=== PATIENT | male | born 1965 | race Two or more races ===

== ENCOUNTER 2021-02-03 23:13 | Emergency (ER) | payer MEDICARE, OTHER ==
[~2021-02-03] VITALS: Ht 170.2 cm; Wt 85.7 kg
--- NOTE | 2021-02-03 23:22 | NUR ---
Pt bibra c/o rt rib pain and rt leg swelling. Pt aaox4 breathing evenly and unlabored. Pt denies any trauma to the area. Pt has hx of rt sided stroke in 2013. pt skin is warm, dry, and intact. Rt leg and arm are noted to be swollen, but pt states that rt arm is "usually swollen". Pt attached to monitor and pox. Pt given blanket and call light within reach
[2021-02-04] MEDS ORDERED: HYDROMORPHONE INJ 2 MG/ML DISP.SYRIN ONE (00:10)
[2021-02-04] MEDS ORDERED: ONDANSETRON 4 MG TAB.RAPDIS ONE (00:11)
--- NOTE | 2021-02-04 00:15 | NUR ---
US called and on their way
[2021-02-04 00:16] LABS: BASOPHILS # (AUTO) 0.1 /CMM (0.0-0.2); BASOPHILS % (AUTO) 0.7 % (0.0-2.0); EOSINOPHILS % (AUTO) 3.6 % (0.0-6.0); HEMATOCRIT 40 % (39-51); HEMOGLOBIN 12.8 g/dL (13.5-17.5); LYMPHOCYTES # (AUTO) 1.8 /CMM (0.8-4.8); LYMPHOCYTES % (AUTO) 22.5 % (20.0-44.0); MEAN CORPUSCULAR HGB CONC 32 g/dl (31.0-36.0); MEAN CORPUSCULAR VOLUME 82 fL (80-96); MONOCYTES # (AUTO) 0.6 /CMM (0.1-1.30); MONOCYTES % (AUTO) 7.4 % (2.0-12.0); NEUTROPHILS # (AUTO) 5.4 /CMM (1.8-8.9); NEUTROPHILS % (AUTO) 65.8 % (43.0-81.0); PLATELET COUNT (AUTO) 221 /CMM (150-450); RED BLOOD CELL COUNT(AUTO) 4.87 MIL/uL (4.5-6.0); WHITE BLOOD COUNT (AUTO) 8.1 K/uL (4.3-11.0)
[2021-02-04 00:26] LABS: CALCIUM, SERUM 8.6 mg/dL (8.5-10.1); CREATININE 1.4 mg/dL (0.6-1.3); POTASSIUM 4.3 mmol/L (3.5-5.1)
[2021-02-04] MEDS ORDERED: ONDANSETRON 4 MG TAB.RAPDIS SL ONE (00:30)
[2021-02-04] MEDS ORDERED: HYDROMORPHONE INJ 2 MG/ML DISP.SYRIN IM ONE (00:30)
[2021-02-04 00:32] LABS: ALBUMIN 3.8 g/dL (3.4-5.0); BILIRUBIN,TOTAL 0.6 mg/dL (0.2-1.0)
--- NOTE | 2021-02-04 01:36 | NUR ---
us at bedside
[2021-02-04] MEDS ORDERED: PRED20TA PO (02:26)
[2021-02-04] MEDS ORDERED: HYDR-3980 PO (02:26)
[2021-02-04] MEDS ORDERED: predniSONE 50 MG TABLET PO ONE (02:30)
--- NOTE | 2021-02-04 02:33 | NUR ---
Patient discharged to home in stable condition. Written and verbal after care instructions given. Patient verbalizes understanding of instruction. Pt ambulatory with a steady gait. Pt awaiting son for ride
[2021-02-04] MEDS ORDERED: predniSONE 10 MG TABLET ONE (02:35)
[2021-02-04 02:49] VITALS: BP 144/88
== END 2021-02-04 02:40 | disposition home or self-care (01) ==
LOC: ER 23:17
DX: M79.601 Pain in right arm (principal); G81.91 Hemiplegia, unspecified affecting right dominant side; L23.9 Allergic contact dermatitis, unspecified cause; G89.29 Other chronic pain; M79.604 Pain in right leg; I89.0 Lymphedema, not elsewhere classified; I10 Essential (primary) hypertension; Z86.73 Personal history of transient ischemic attack (TIA), and cerebral infarction without residual deficits; Z79.899 Other long term (current) drug therapy
CPT/HCPCS: 36415; 71045; 80053; 85025; 93971 ×2; 96372; 99285; J1170; J7512; Q0162

== ENCOUNTER 2021-02-17 04:26 | Emergency (ER) | payer MEDICARE, OTHER ==
[~2021-02-17] VITALS: Ht 167.6 cm; Wt 99.8 kg
[~2021-02-17 04:26] MED LIST: HYDR-3980 PO; PRED20TA PO
--- NOTE | 2021-02-17 04:41 | NUR ---
PT AAOX4. BIBRA FROM HOME C/O R ARM PAIN - TRAUMA NOTED. PLACED IN BED 10 ON MONITOR AND PULSE OX. AWAITING ER MD FOR EVAL AND ORDERS.
[2021-02-17] MEDS ORDERED: KETOROLAC TROMETHAMINE INJ 30 MG/ML VIAL ONE (04:48)
[2021-02-17] MEDS ORDERED: KETOROLAC TROMETHAMINE INJ 30 MG/ML VIAL IV ONE (05:00)
--- NOTE | 2021-02-17 05:20 | NUR ---
PT STATED THE PAIN SUBSIDED, C/O NAUSEA.
[2021-02-17] MEDS ORDERED: ONDANSETRON HCL/PF 4 MG/2 ML VIAL ONE (05:22)
[2021-02-17] MEDS ORDERED: ONDANSETRON HCL/PF 4 MG/2 ML VIAL IV ONE (05:30)
--- NOTE | 2021-02-17 05:54 | NUR ---
ATTEMPTED TO CONTACT PT'S SON REGARDING TRANSPORTATION BACK HOME. NO ANSWER
--- NOTE | 2021-02-17 07:07 | NUR ---
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
[2021-02-17] MEDS ORDERED: HYDROMORPHONE 1 MG/1 ML DISP.SYRIN ONE (07:45)
--- NOTE | 2021-02-17 07:50 | NUR ---
C/O RIGHT ARM PAIN 03/20. ORDERED DILAUDID GIVEN. NO ADVERSE SIE EFFECTS NOTED.
[2021-02-17 07:53] VITALS: BP 141/84
--- NOTE | 2021-02-17 07:53 | NUR ---
The patient is alert and oriented x4. Patient discharged to home in stable condition. Written and verbal after care instructions given. Patient verbalizes understanding of instruction.
[2021-02-17] MEDS ORDERED: HYDROMORPHONE 1 MG/1 ML DISP.SYRIN IV ONE (08:00)
== END 2021-02-17 07:53 | disposition home or self-care (01) ==
LOC: ER 04:28
DX: G89.29 Other chronic pain (principal); I11.0 Hypertensive heart disease with heart failure; I50.9 Heart failure, unspecified; Z79.899 Other long term (current) drug therapy; Z86.73 Personal history of transient ischemic attack (TIA), and cerebral infarction without residual deficits
CPT/HCPCS: 96374; 96375; 99284; J1170; J1885; J2405